=== PATIENT | female | born 1945 | race Caucasian/White ===

== ENCOUNTER 2022-08-31 06:41 | Observation (INO) | payer MEDICARE ==
[~2022-08-31] VITALS: Ht 177.8 cm; Wt 85.3 kg
[2022-08-31] MEDS ORDERED: ONDANSETRON HCL INJ 2MG/ML 2ML 2 MG/ML VIAL IV STA (06:49)
[2022-08-31] MEDS ORDERED: Morphine 2mg Syringe 2 MG/ML SYR IV ONE (07:00)
[2022-08-31] MEDS ORDERED: SODIUM CHLORIDE FLUSH 10 ML SYR IV PRN (07:00)
[2022-08-31 07:30] LABS: BASOPHILS % 0.2 % (0.0-1.0); EOSINOPHILS % 0.4 % (0.0-6.0); HEMATOCRIT 42.1 % (34.2-44.1); LYMPHOCYTES # (AUTO) 1.3 (1.0-3.2); MEAN CORPUSCULAR HEMOGLOBIN 30.6 pg (28-32); MEAN CORPUSCULAR HGB CONC 33.3 g/dL (31-35); MEAN CORPUSCULAR VOLUME 92.1 fL (81-99); MONOCYTES # (AUTO) 0.4 (0.2-0.8); MONOCYTES % 4.4 % (4.4-11.3); NEUTROPHILS # (AUTO) 7.7 (2.1-6.9); NEUTROPHILS % 80.7 % (38.7-80.0); PLATELET COUNT 178 x10e3/uL (140-360); RED BLOOD COUNT 4.57 x10e6/uL (3.6-5.1)
[2022-08-31 07:44] LABS: ALBUMIN/GLOBULIN RATIO 1.3 (0.8-2.0); ANION GAP 12.6 mmol/L (8-16); CALCIUM 9.9 mg/dL (8.4-10.2); CREATININE, SERUM 1.73 mg/dL (0.57-1.11); POTASSIUM 4.6 mmol/L (3.5-5.1)
[2022-08-31] MEDS ORDERED: ONDANSETRON HCL INJ 2MG/ML 2ML 2 MG/ML VIAL IV PRN (09:15)
[2022-08-31] MEDS ORDERED: ASPIRIN 81 MG CHEW TAB PO ONE ×2 (09:15)
[2022-08-31] MEDS: SODIUM CHLORIDE 0.9% 1000ML 1,000 ML IV SCH ×2 (10:58→18:15)
[2022-08-31] MEDS ORDERED: HYDRALAZINE HCL 20 MG/ML VIAL IV PRN (12:45)
[2022-08-31] MEDS ORDERED: DEXTROSE 50% SYRINGE 50 ML IV PRN (12:45)
[2022-08-31] MEDS ORDERED: ACETAMINOPHEN 325 MG TAB PO PRN (12:45)
[2022-08-31] MEDS: INSULIN REGULAR, HUMAN 100 UNIT/1 ML SQ SCH ×2 (16:13→21:02)
[2022-08-31 17:53] VITALS: BP 150/64; PULSE 67; RESP 17; TEMP 97.8; O2SAT 99
[2022-08-31 17:54] VITALS: BP 150/64; PULSE 67; RESP 17; TEMP 97.8; O2SAT 99
[2022-08-31 17:56] VITALS: BP 150/64; PULSE 67; RESP 17; TEMP 97.8; O2SAT 99
[2022-08-31] MEDS: METOPROLOL TARTRATE 25 MG TAB PO SCH (18:15)
[2022-08-31] MEDS ORDERED: METOPROLOL TART50 MG PO (18:21)
[2022-08-31] MEDS ORDERED: HYDROCHLOROTHIA25 MG PO (18:21)
[2022-08-31] MEDS ORDERED: GLIPIZIDE5 MG PO (18:21)
[2022-08-31] MEDS ORDERED: DIOVAN160 MG PO (18:21)
[2022-08-31] MEDS ORDERED: CRESTOR10 MG PO (18:21)
[2022-08-31 20:00] VITALS: BP 134/67; PULSE 71; RESP 18; TEMP 97.6; O2SAT 98
[2022-08-31 21:00] VITALS: BP 134/67; PULSE 71; RESP 18; TEMP 97.6; O2SAT 98
[2022-08-31] MEDS: ATORVASTATIN 40 MG TAB PO SCH (21:02)
[2022-09-01] VITALS (8 sets, daily range): BP systolic 108–130; BP diastolic 53–63; PULSE 62–70; RESP 16–18; TEMP 97.1–98.3; O2SAT 97–100
[2022-09-01] MEDS: SODIUM CHLORIDE 0.9% 1000ML 1,000 ML IV SCH ×3 (04:17→19:04)
[2022-09-01 06:08] LABS: BASOPHILS % 0.4 % (0.0-1.0); EOSINOPHILS # (AUTO) 0.1 (0.0-0.4); EOSINOPHILS % 1.5 % (0.0-6.0); HEMATOCRIT 35.9 % (34.2-44.1); HEMOGLOBIN 11.6 g/dL (12.0-16.0); LYMPHOCYTES # (AUTO) 1.8 (1.0-3.2); LYMPHOCYTES % 34.4 % (18.0-39.1); MEAN CORPUSCULAR HEMOGLOBIN 30.3 pg (28-32); MEAN CORPUSCULAR HGB CONC 32.3 g/dL (31-35); MEAN CORPUSCULAR VOLUME 93.7 fL (81-99); MONOCYTES # (AUTO) 0.5 (0.2-0.8); MONOCYTES % 9.9 % (4.4-11.3); NEUTROPHILS # (AUTO) 2.8 (2.1-6.9); NEUTROPHILS % 53.4 % (38.7-80.0); PLATELET COUNT 145 x10e3/uL (140-360); RED BLOOD COUNT 3.83 x10e6/uL (3.6-5.1)
[2022-09-01 06:37] LABS: ALBUMIN 3.1 g/dL (3.5-5.0); ALBUMIN/GLOBULIN RATIO 1.3 (0.8-2.0); ANION GAP 11.3 mmol/L (8-16); CALCIUM 8.5 mg/dL (8.4-10.2); CREATININE, SERUM 1.54 mg/dL (0.57-1.11); POTASSIUM 4.3 mmol/L (3.5-5.1)
[2022-09-01] MEDS: INSULIN REGULAR, HUMAN 100 UNIT/1 ML SQ SCH ×4 (07:24→21:36)
[2022-09-01] MEDS: ASPIRIN 81 MG ENTERIC COATED PO SCH (08:24)
[2022-09-01] MEDS: METOPROLOL TARTRATE 25 MG TAB PO SCH ×2 (08:25→16:59)
[2022-09-01] MEDS: ATORVASTATIN 40 MG TAB PO SCH (21:36)
[2022-09-02] VITALS: BP 127/57; PULSE 61; RESP 18; TEMP 98.6; O2SAT 100
[2022-09-02 04:00] VITALS: BP 121/59; PULSE 61; RESP 18; TEMP 98; O2SAT 100
[2022-09-02] MEDS: SODIUM CHLORIDE 0.9% 1000ML 1,000 ML IV SCH (04:00)
[2022-09-02 05:16] LABS: BASOPHILS % 0.4 % (0.0-1.0); EOSINOPHILS # (AUTO) 0.1 (0.0-0.4); HEMATOCRIT 36.3 % (34.2-44.1); HEMOGLOBIN 11.7 g/dL (12.0-16.0); LYMPHOCYTES # (AUTO) 1.9 (1.0-3.2); LYMPHOCYTES % 36.6 % (18.0-39.1); MEAN CORPUSCULAR HEMOGLOBIN 30.3 pg (28-32); MEAN CORPUSCULAR HGB CONC 32.2 g/dL (31-35); MONOCYTES # (AUTO) 0.4 (0.2-0.8); MONOCYTES % 7.9 % (4.4-11.3); NEUTROPHILS # (AUTO) 2.7 (2.1-6.9); NEUTROPHILS % 52.7 % (38.7-80.0); PLATELET COUNT 144 x10e3/uL (140-360); RED BLOOD COUNT 3.86 x10e6/uL (3.6-5.1); RED CELL DISTRIBUTION WIDTH 12.7 % (11.7-14.4)
[2022-09-02 06:06] LABS: ALBUMIN 2.9 g/dL (3.5-5.0); ALBUMIN/GLOBULIN RATIO 1.2 (0.8-2.0); CALCIUM 8.5 mg/dL (8.4-10.2); CHOL/HDL RATIO 3.3 (3.0-3.6); CREATININE, SERUM 1.27 mg/dL (0.57-1.11)
[2022-09-02] MEDS: INSULIN REGULAR, HUMAN 100 UNIT/1 ML SQ SCH ×3 (07:30→16:30)
[2022-09-02 08:00] VITALS: BP 134/67; PULSE 66; RESP 19; TEMP 98.1; O2SAT 98
[2022-09-02] MEDS: METOPROLOL TARTRATE 25 MG TAB PO SCH ×2 (09:00→17:00)
[2022-09-02] MEDS: ASPIRIN 81 MG ENTERIC COATED PO SCH (09:00)
[2022-09-02 10:04] VITALS: BP 134/67; PULSE 66; RESP 19; TEMP 98.1; O2SAT 98
[2022-09-02] MEDS ORDERED: REGADENOSON 0.4 MG/5 ML SYR IV ONE (10:52)
[2022-09-02 12:25] VITALS: BP 150/69; PULSE 75; RESP 19; TEMP 98.4; O2SAT 100
[2022-09-02] MEDS ORDERED: LOPRESSOR25 MG PO (15:04)
[2022-09-02 16:00] VITALS: BP 137/57; PULSE 64; RESP 19; TEMP 98.2; O2SAT 100
== END 2022-09-02 18:32 | disposition home or self-care (01) ==
LOC: ER 06:45 → ERHOLD 09:16 → MED/SURG 17:03
PROVIDERS: ADMIT Internal Medicine; ATTEND Internal Medicine
DX: R55 Syncope and collapse (principal); R07.9 Chest pain, unspecified; N17.9 Acute kidney failure, unspecified; I95.9 Hypotension, unspecified; I13.10 Hypertensive heart and chronic kidney disease without heart failure, with stage 1 through stage 4 chronic kidney disease, or unspecified chronic kidney disease; E11.22 Type 2 diabetes mellitus with diabetic chronic kidney disease; N18.30 Chronic kidney disease, stage 3 unspecified; E78.00 Pure hypercholesterolemia, unspecified; Z79.4 Long term (current) use of insulin; Z79.84 Long term (current) use of oral hypoglycemic drugs; I07.1 Rheumatic tricuspid insufficiency; M53.3 Sacrococcygeal disorders, not elsewhere classified; Z11.52 Encounter for screening for COVID-19; Z79.899 Other long term (current) drug therapy; W18.39XA Other fall on same level, initial encounter; Y92.002 Bathroom of unspecified non-institutional (private) residence as the place of occurrence of the external cause
CPT/HCPCS: 36415 ×3; 71045; 72220; 78451; 80053 ×3; 80061; 82550 ×2; 82948 ×3; 83036; 83880; 84443; 84484 ×2; 85025 ×3; 93005 ×2; 93017; 93306; 93880; 99284; A9502; G0378 ×3; J2270; J2405; J2785; J7030 ×3; U0002